=== PATIENT | male | born 1980 | race Caucasian/White ===

== ENCOUNTER 2023-01-24 19:15 | Emergency (ER) | payer BC, SELFPAY ==
[2023-01-24 19:17] VITALS: BP 142/97; PULSE 82; RESP 16; TEMP 36.9; O2SAT 99; BMI 26.6
--- NOTE | 2023-01-24 19:38 | EX.ED.DYSGE1 ---
HPI History of Present Illness Chief Complaint: GI Bleed Informant: patient Narrative Narrative: Presents after bright red blood per rectum. Patient states he normally moves his bowels every day. He had not move them yesterday or today. He was surprised at this due to the amount of food he ate. He did move his bowels. He states the bowel movement itself was light to medium brown and looked normal. But then he had some red blood mixed in the toilet. No clot. He has not had continual bleeding. This happened a single time. He does not feel ill. No abdominal pain. No history of anticoagulation or taking any meds. No personal or family history of Crohn's or ulcerative colitis. No prior abdominal surgery. He has not had a colonoscopy before. Patient also does have some sore back. But he states he has had this off and on for about the last 12 years. He slipped on the steps while holding his young child then. He landed on the sacral area and has had intermittent pain since. He normally manages this by stretching and foam roller. It is getting better again. He has multiple episodes of this and this is really not different than normal for him. [facility] Medical History Back pain Home Medications NK 01/24/23 [History Last Taken Unknown] Allergy/AdvReac Type Severity Reaction Status Date / Time No Known Allergies Allergy Verified 01/24/23 19:17 Social History Smoking Status: Never smoker ROS ROS ED ROS Narrative A complete review of systems was performed and is negative except as documented in the history of present illness. Some specific details below. Constitutional: No recent fevers or chills. Plays. EYE: No vision color. ENT: No difficulty swallowing. No swelling. No pain. No GERD. No vomiting of blood. CV: No chest pain or palpitations. Respiratory: No dyspnea. No hemoptysis. No difficulty taking breaths. GI: Please see history of present illness. : No frequency dysuria or hematuria. Musculoskeletal: No recent trauma. See history of present illness. Skin: No rash. Nondiaphoretic. Neuro: No weakness or numbness. Endocrine: No polyuria or polydipsia. EXAM Physical Exam Narrative Exam Narrative: CONSTITUTIONAL: Patient is nontoxic in appearance. The patient looks comfortable. HEENT: No notable trauma. Mucous membranes moist. EYES: No pallor or icterus. CARDIOVASCULAR: Regular rate. Regular rhythm. No notable murmur. No JVD. RESPIRATORY: No respiratory distress. Breathing is unlabored. No wheezes. No rhonchi. No rales. No pain with a deep breath. GASTROINTESTINAL: Not distended. Bowel sounds are normal. No tenderness. No guarding. No rebound. No palpable mass. No bruit. Overall abdominal exam is quite benign. Rectal exam shows no sign of hemorrhoid. No sign of infection. He does have a small rectal fissure that is midline to just right of midline. It does not appear to be actively bleeding. There is no blood visible on exam. GENITOURINARY: No tenderness over the bladder. No CVA tenderness. MUSCULOSKELETAL: Atraumatic. No peripheral edema. No cord. No tenderness along the deep venous system. No asymmetry. NEUROLOGICAL: Patient is alert and appropriate. No focal deficit noted. SKIN: No noted rashes. No pallor. No petechiae. No purpura. PSYCHIATRIC: Patient is calm. Mood is appropriate. Const Vital Signs: 01/24/23 19:17 Temperature 98.5 F Temperature Source Temporal Pulse Rate 82 Respiratory Rate 16 Blood Pressure 142/97 H Blood Pressure Mean 112 Pulse Ox 99 MDM MDM MDM Narrative Medical decision making narrative: Patient CBC is normal including his hemoglobin is normal at 13.7. Platelets are normal at 229. Patient's electrolytes show no marked abnormalities. His glucose is mildly up at 127. We discussed this and it will need recheck. He has had no further symptoms. He has no abdominal pain or cramping. His abdomen is still benign. He is appropriate for discharge. We did discuss that he may need further workup including possible colonoscopy. He can contact his private physician. If he has recurrent bleeding, lightheadedness, abdominal pain, fevers or other concerning symptoms he should return. Lab Data Attestation: I reviewed the patient's lab results. Labs: Laboratory Results - last 24 hr 01/24/23 19:55 WBC 7.6 RBC 4.56 L Hgb 13.7 Hct 41.3 MCV 90.6 MCH 30.0 MCHC 33.2 RDW Std Deviation 39.3 RDW Coeff of Aiden 11.8 Plt Count 229 MPV 9.7 Immature Gran % (Auto) 0.300 Neut % (Auto) 33.6 L Lymph % (Auto) 54.5 H [place] % (Auto) 7.4 Eos % (Auto) 3.3 Baso % (Auto) 0.9 Absolute Neuts (auto) 2.6 Absolute Lymphs (auto) 4.14 Nucleated RBC % 0 Sodium 140 Potassium 3.5 Chloride 109 H Carbon Dioxide 27.0 Anion Gap 4 L BUN 14 Creatinine 0.98 Estim Creat Clear Calc 116.50 Est GFR (MDRD) Af Amer 108 Est GFR (MDRD) Non-Af 89 BUN/Creatinine Ratio 14.2 Glucose 127 H Calcium 8.4 L Discharge Plan Triage Chief Complaint: GI Bleed Other Complaint: Back ED Provider: Miquel Oropeza Dx/Rx/DC Orders Clinical Impression: BRBPR (bright red blood per rectum), Acute anal fissure Instructions: ED Understanding Anal Fissures, ED Lower GI Bleeding (Stable) Prescriptions: No Action NK Primary Care Provider: Quang Fraga Referrals: Yfn Dunham MD [Non-Staff] - 3-5 Days Disposition Disposition: Home, Self Care
[2023-01-24 20:01] LABS: Absolute Lymphocyte Count 4.14 X10^3/uL (0.83-4.51); Absolute Neutrophil Count 2.6 X10^3/uL (2.0-7.7); Basophil# 0.07 X10^3/uL; Basophil% 0.9 % (0-1); Eosinophil# 0.25 X10^3/uL; Eosinophils% 3.3 % (0-5); Hematocrit 41.3 % (40-54); Hemoglobin 13.7 g/dL (13.0-16.5); Lymphocyte # 4.14 X10^3/ul (0.83-4.51); Lymphocyte % 54.5 % (19-41); Mean Corp Hgb Conc 33.2 g/dL (32-36); Mean Corpuscular Volume 90.6 fL (80-94); Mean Platelet Vol. 9.7 fl (6.2-12.0); Monocyte# 0.56 X10^3/uL; Monocyte% 7.4 % (0-10); NRBC Flagged by Analyzer 0 % (0-5); Neutrophil # 2.55 X10^3/uL (2.7-7.7); Neutrophil % 33.6 % (47-70); Platelet Count 229 K/mm3 (150-450); RBC Distribution Width CV 11.8 % (11.6-14.6); RBC Distribution Width SD 39.3 fl (35.1-43.9); Red Blood Count 4.56 M/mm3 (4.6-6.2); White Blood Count 7.6 K/mm3 (4.4-11.0)
[2023-01-24 20:13] LABS: Anion Gap 4 (5-15); BUN 14 mg/dL (7-18); BUN/Creat Ratio 14.2 RATIO (10-20); Calcium,Total 8.4 mg/dL (8.5-10.1); Chloride 109 mmol/L (98-107); Creatinine, Serum 0.98 mg/dL (0.70-1.30); EST Glomerular Filtration Rate 89 mL/min (>60); Est Glom Filt Rate - Afr Amer 108 mL/min (>60); Glucose 127 mg/dL (74-106); Potassium 3.5 mmol/L (3.5-5.1); Sodium Level 140 mmol/L (136-145)
[2023-01-24 21:03] VITALS: RESP 14
== END 2023-01-24 21:03 | disposition home or self-care (01) ==
PROVIDERS: Emergency Provider Emergency Medicine; PCP Internal Medicine; Visit Provider Emergency Medicine
DX: K92.2 Gastrointestinal hemorrhage, unspecified (principal); K60.0 Acute anal fissure
CPT/HCPCS: 36415; 80048; 85025; 99283